=== PATIENT | female | born 1970 | race Caucasian/White ===

== ENCOUNTER 2018-07-26 07:13 | Emergency (ER) | payer MEDICAID ==
[~2018-07-26] VITALS: Ht 157.5 cm; Wt 108.9 kg
[~2018-07-26 07:13] MED LIST: FIORICET 50-301 EACH PO; LISINOPRIL-HCT1 EAC2 PO; NEURONTIN300 MG PO; RANITIDINE HCL300 M1 PO
[2018-07-26] MEDS ORDERED: CYCLOBENZAPRINE10 MG PO (08:01)
[2018-07-26] MEDS ORDERED: PREDNISONE20 MG PO (08:01)
== END 2018-07-26 08:45 | disposition home or self-care (01) ==
LOC: ED 07:13
DX: M54.42 Lumbago with sciatica, left side (principal); I10 Essential (primary) hypertension; F17.200 Nicotine dependence, unspecified, uncomplicated; Z88.2 Allergy status to sulfonamides; Z88.5 Allergy status to narcotic agent; Z79.899 Other long term (current) drug therapy
CPT/HCPCS: 72100; 96372; 99283-25; J1885; J7512